=== PATIENT | male | born 1940 | race African-American/Black ===

== ENCOUNTER 2017-01-26 18:00 | Inpatient (IN) | payer MEDICARE ==
[~2017-01-26] VITALS: Ht 177.8 cm; Wt 131.5 kg
[~2017-01-26 18:00] MED LIST: DORZOL/TIMOL BOTHEYE
[2017-01-26 20:00] VITALS: BP 153/63
[2017-01-26] MEDS ORDERED: DEXTROSE 50% WATER 50ML SYRINGE IV PRN (22:15)
[2017-01-26] MEDS ORDERED: IPRATROPIUM/ALBUTEROL 0.5-3(2.5)MG/3ML NEB HHN PRN (22:15)
[2017-01-26] MEDS ORDERED: ONDANSETRON HCL 4MG/2ML VIAL IV PRN (23:45)
[2017-01-26] MEDS ORDERED: LACTULOSE 20G/30ML UDC PO PRN (23:45)
[2017-01-26] MEDS ORDERED: MAGNESIUM/ALUMINUM HYDROXIDE/SIMETHICONE 30ML UDC PO PRN ×2 (23:45)
[2017-01-26] MEDS ORDERED: ACETAMINOPHEN 650MG/20.3ML UDC PO PRN (23:45)
[2017-01-26] MEDS ORDERED: DOCUSATE SODIUM 100MG CAPSULE PO PRN (23:45)
[2017-01-26] MEDS ORDERED: GUAIFENESIN-DM 200MG-20MG/10ML UDC PO PRN (23:45)
[2017-01-27] MEDS ORDERED: HYDRALAZINE HCL 10MG TABLET PO PRN (00:30)
[2017-01-27] MEDS: BLOOD SUGAR DIAGNOSTIC STRIP TEST SCH ×4 (06:30→22:13)
[2017-01-27] MEDS: PHENYTOIN SODIUM EXTENDED 100MG CAPSULE PO SCH ×3 (07:42→22:10)
[2017-01-27 08:00] VITALS: BP 133/72
[2017-01-27 08:16] VITALS: BP 153/63
[2017-01-27] MEDS: INSULIN LISPRO 100 UNITS/ML SUBCUT SCH ×4 (09:00→22:13)
[2017-01-27] MEDS: LACTULOSE 20G/30ML UDC PO SCH ×2 (09:57→17:00)
[2017-01-27] MEDS: DOCUSATE SODIUM 100MG CAPSULE PO SCH ×2 (09:57→17:00)
[2017-01-27] MEDS: PANTOPRAZOLE SODIUM 40 MG/VIAL IV SCH (09:57)
[2017-01-27] MEDS: LEVETIRACETAM 500MG TABLET PO SCH ×2 (09:57→22:11)
[2017-01-27] MEDS: PIPERACILLIN/TAZ 2.25G PREMIX 50 ML IV SCH ×3 (09:57→17:01)
[2017-01-27] MEDS: DEXAMETHASONE 4MG/ML 1ML VIAL IV SCH (09:57)
[2017-01-27] MEDS: DORZOLAM/TIMOLOL 2.23/0.68% OPHTH DROPS 10ML BOTHEYE SCH ×2 (10:07→17:01)
[2017-01-27 20:00] VITALS: BP 136/62
[2017-01-27] MEDS: ATORVASTATIN CALCIUM 20MG TABLET PO SCH (22:11)
[2017-01-28] MEDS: PIPERACILLIN/TAZ 2.25G PREMIX 50 ML IV SCH ×3 (01:44→18:24)
[2017-01-28] MEDS: PHENYTOIN SODIUM EXTENDED 100MG CAPSULE PO SCH ×3 (06:29→21:01)
[2017-01-28] MEDS: BLOOD SUGAR DIAGNOSTIC STRIP TEST SCH ×4 (06:32→21:02)
[2017-01-28] MEDS: INSULIN LISPRO 100 UNITS/ML SUBCUT SCH ×4 (06:33→21:19)
[2017-01-28 07:17] LABS: BASOPHILS % 0.3 % (0.0-2.0); HEMATOCRIT. 35.1 % (42.0-52.0); HEMOGLOBIN. 11.4 g/dL (14.0-18.0); LYMPHOCYTES % 9.1 % (20.0-50.0); MEAN CORPUSCULAR HEMOGLOBIN 26.8 pg (28.0-32.0); MEAN CORPUSCULAR VOLUME 82.3 fL (80.0-94.0); MEAN PLATELET VOLUME 8.4 fl (7.4-10.4); MONOCYTES % 11.4 % (2.0-8.0); NEUTROPHILS % 78.2 % (40.0-76.0); PLATELET 201 x1000/uL (130-400); RED BLOOD CELL COUNT 4.26 mill/uL (4.7-6.1); RED CELL DISTRIBUTION WIDTH 15.5 % (11.6-14.6)
[2017-01-28 07:31] LABS: CARBON DIOXIDE 27 mEq/L (21-32); CHLORIDE 99 mEq/L (98-107)
[2017-01-28 08:00] VITALS: BP 141/73
[2017-01-28] MEDS: PANTOPRAZOLE SODIUM 40 MG/VIAL IV SCH (08:49)
[2017-01-28] MEDS: LACTULOSE 20G/30ML UDC PO SCH ×2 (08:50→17:00)
[2017-01-28] MEDS: DOCUSATE SODIUM 100MG CAPSULE PO SCH ×2 (08:50→17:00)
[2017-01-28] MEDS: DEXAMETHASONE 4MG/ML 1ML VIAL IV SCH (08:50)
[2017-01-28] MEDS: DORZOLAM/TIMOLOL 2.23/0.68% OPHTH DROPS 10ML BOTHEYE SCH ×2 (08:50→17:57)
[2017-01-28] MEDS: LEVETIRACETAM 500MG TABLET PO SCH ×2 (08:51→21:02)
[2017-01-28 20:27] VITALS: BP 166/79
[2017-01-28] MEDS: ATORVASTATIN CALCIUM 20MG TABLET PO SCH (21:02)
[2017-01-29] MEDS: PIPERACILLIN/TAZ 2.25G PREMIX 50 ML IV SCH ×3 (01:06→17:19)
[2017-01-29] MEDS: PANTOPRAZOLE 40MG DR TABLET PO SCH (06:17)
[2017-01-29] MEDS: PHENYTOIN SODIUM EXTENDED 100MG CAPSULE PO SCH ×3 (06:17→21:42)
[2017-01-29] MEDS: BLOOD SUGAR DIAGNOSTIC STRIP TEST SCH ×4 (06:17→21:43)
[2017-01-29] MEDS: INSULIN LISPRO 100 UNITS/ML SUBCUT SCH ×4 (06:56→21:00)
[2017-01-29 07:56] VITALS: BP 117/54
[2017-01-29] MEDS: DORZOLAM/TIMOLOL 2.23/0.68% OPHTH DROPS 10ML BOTHEYE SCH ×2 (08:39→17:30)
[2017-01-29] MEDS: DEXAMETHASONE 4MG/ML 1ML VIAL IV SCH (08:40)
[2017-01-29] MEDS: DOCUSATE SODIUM 100MG CAPSULE PO SCH ×2 (08:40→17:19)
[2017-01-29] MEDS: LEVETIRACETAM 500MG TABLET PO SCH ×2 (08:40→21:42)
[2017-01-29] MEDS: LACTULOSE 20G/30ML UDC PO SCH ×2 (08:41→17:00)
[2017-01-29 20:00] VITALS: BP 123/60
[2017-01-29] MEDS: ATORVASTATIN CALCIUM 20MG TABLET PO SCH (21:42)
[2017-01-30] MEDS: PIPERACILLIN/TAZ 2.25G PREMIX 50 ML IV SCH ×2 (02:03→09:07)
[2017-01-30] MEDS: BLOOD SUGAR DIAGNOSTIC STRIP TEST SCH ×4 (06:13→21:00)
[2017-01-30] MEDS: PHENYTOIN SODIUM EXTENDED 100MG CAPSULE PO SCH ×3 (06:15→22:24)
[2017-01-30] MEDS: PANTOPRAZOLE 40MG DR TABLET PO SCH (06:15)
[2017-01-30 08:00] VITALS: BP 121/59
[2017-01-30] MEDS: INSULIN LISPRO 100 UNITS/ML SUBCUT SCH ×4 (08:52→21:00)
[2017-01-30] MEDS: LACTULOSE 20G/30ML UDC PO SCH ×3 (09:00→16:25)
[2017-01-30] MEDS: DEXAMETHASONE 4MG/ML 1ML VIAL IV SCH (09:07)
[2017-01-30] MEDS: DOCUSATE SODIUM 100MG CAPSULE PO SCH ×2 (09:07→17:05)
[2017-01-30] MEDS: LEVETIRACETAM 500MG TABLET PO SCH ×2 (09:07→22:24)
[2017-01-30] MEDS: DORZOLAM/TIMOLOL 2.23/0.68% OPHTH DROPS 10ML BOTHEYE SCH ×2 (09:10→17:05)
[2017-01-30 20:00] VITALS: BP 116/54
[2017-01-30] MEDS: ATORVASTATIN CALCIUM 20MG TABLET PO SCH (22:24)
[2017-01-31] MEDS: PANTOPRAZOLE 40MG DR TABLET PO SCH (06:10)
[2017-01-31] MEDS: PHENYTOIN SODIUM EXTENDED 100MG CAPSULE PO SCH ×3 (06:10→21:52)
[2017-01-31] MEDS: BLOOD SUGAR DIAGNOSTIC STRIP TEST SCH ×4 (06:44→21:51)
[2017-01-31] MEDS: INSULIN LISPRO 100 UNITS/ML SUBCUT SCH ×4 (06:45→21:00)
[2017-01-31] MEDS: LACTULOSE 20G/30ML UDC PO SCH ×2 (08:07→16:21)
[2017-01-31 08:27] VITALS: BP 127/66
[2017-01-31] MEDS: LEVETIRACETAM 500MG TABLET PO SCH ×2 (08:50→21:52)
[2017-01-31] MEDS: DEXAMETHASONE 4MG/ML 1ML VIAL IV SCH (08:50)
[2017-01-31] MEDS: DOCUSATE SODIUM 100MG CAPSULE PO SCH ×2 (08:50→16:21)
[2017-01-31] MEDS: DORZOLAM/TIMOLOL 2.23/0.68% OPHTH DROPS 10ML BOTHEYE SCH ×2 (08:50→16:21)
[2017-01-31 20:00] VITALS: BP 148/69
[2017-01-31] MEDS: ATORVASTATIN CALCIUM 20MG TABLET PO SCH (21:52)
[2017-02-01] MEDS: PHENYTOIN SODIUM EXTENDED 100MG CAPSULE PO SCH ×3 (06:14→21:51)
[2017-02-01] MEDS: BLOOD SUGAR DIAGNOSTIC STRIP TEST SCH ×4 (06:14→21:53)
[2017-02-01] MEDS: LACTULOSE 20G/30ML UDC PO SCH ×2 (07:33→16:06)
[2017-02-01] MEDS: INSULIN LISPRO 100 UNITS/ML SUBCUT SCH ×4 (07:34→21:00)
[2017-02-01 08:00] VITALS: BP 135/76
[2017-02-01] MEDS: DOCUSATE SODIUM 100MG CAPSULE PO SCH ×2 (09:04→16:36)
[2017-02-01] MEDS: DORZOLAM/TIMOLOL 2.23/0.68% OPHTH DROPS 10ML BOTHEYE SCH ×2 (09:04→16:35)
[2017-02-01] MEDS: DEXAMETHASONE 4MG/ML 1ML VIAL IV SCH (09:04)
[2017-02-01] MEDS: FAMOTIDINE 20MG TABLET PO SCH (09:05)
[2017-02-01] MEDS: LEVETIRACETAM 500MG TABLET PO SCH ×2 (09:05→21:51)
[2017-02-01 20:00] VITALS: BP 136/60
[2017-02-01] MEDS: ATORVASTATIN CALCIUM 20MG TABLET PO SCH (21:51)
[2017-02-02] MEDS: BLOOD SUGAR DIAGNOSTIC STRIP TEST SCH ×4 (06:08→21:00)
[2017-02-02] MEDS: PHENYTOIN SODIUM EXTENDED 100MG CAPSULE PO SCH ×3 (06:09→21:03)
[2017-02-02 07:09] LABS: BASOPHILS % 0.6 % (0.0-2.0); EOSINOPHILS % 2.3 % (0.0-5.0); HEMATOCRIT. 30.3 % (42.0-52.0); HEMOGLOBIN. 9.8 g/dL (14.0-18.0); LYMPHOCYTES % 16.9 % (20.0-50.0); MEAN CORPUSCULAR HEMOGLOBIN 26.8 pg (28.0-32.0); MEAN CORPUSCULAR VOLUME 82.8 fL (80.0-94.0); MEAN PLATELET VOLUME 7.9 fl (7.4-10.4); MONOCYTES % 8.5 % (2.0-8.0); NEUTROPHILS % 71.7 % (40.0-76.0); PLATELET 233 x1000/uL (130-400); RED BLOOD CELL COUNT 3.66 mill/uL (4.7-6.1); RED CELL DISTRIBUTION WIDTH 15.5 % (11.6-14.6)
[2017-02-02] MEDS: INSULIN LISPRO 100 UNITS/ML SUBCUT SCH ×4 (07:43→21:00)
[2017-02-02 08:00] VITALS: BP 133/67
[2017-02-02] MEDS: LEVETIRACETAM 500MG TABLET PO SCH ×2 (08:17→21:03)
[2017-02-02] MEDS: DEXAMETHASONE 4MG/ML 1ML VIAL IV SCH (08:17)
[2017-02-02] MEDS: DOCUSATE SODIUM 100MG CAPSULE PO SCH ×2 (08:17→16:53)
[2017-02-02] MEDS: FAMOTIDINE 20MG TABLET PO SCH (08:17)
[2017-02-02] MEDS: DORZOLAM/TIMOLOL 2.23/0.68% OPHTH DROPS 10ML BOTHEYE SCH ×2 (08:17→16:53)
[2017-02-02] MEDS: LACTULOSE 20G/30ML UDC PO SCH ×2 (08:18→16:50)
[2017-02-02 08:51] LABS: CARBON DIOXIDE 26 mEq/L (21-32); CHLORIDE 102 mEq/L (98-107)
[2017-02-02 20:00] VITALS: BP 132/62
[2017-02-02] MEDS: ATORVASTATIN CALCIUM 20MG TABLET PO SCH (21:03)
[2017-02-03] MEDS: BLOOD SUGAR DIAGNOSTIC STRIP TEST SCH ×4 (06:30→20:48)
[2017-02-03] MEDS: PHENYTOIN SODIUM EXTENDED 100MG CAPSULE PO SCH (06:32)
[2017-02-03] MEDS: INSULIN LISPRO 100 UNITS/ML SUBCUT SCH ×4 (06:34→20:48)
[2017-02-03 08:00] VITALS: BP 126/67
[2017-02-03] MEDS: DOCUSATE SODIUM 100MG CAPSULE PO SCH ×2 (09:00→16:19)
[2017-02-03] MEDS: LACTULOSE 20G/30ML UDC PO SCH ×2 (09:00→16:19)
[2017-02-03] MEDS: DORZOLAM/TIMOLOL 2.23/0.68% OPHTH DROPS 10ML BOTHEYE SCH ×2 (09:27→16:18)
[2017-02-03] MEDS: LEVETIRACETAM 500MG TABLET PO SCH ×2 (09:28→20:48)
[2017-02-03] MEDS: DEXAMETHASONE 4MG/ML 1ML VIAL IV SCH (09:28)
[2017-02-03] MEDS: FAMOTIDINE 20MG TABLET PO SCH (09:28)
[2017-02-03 20:16] VITALS: BP 121/48
[2017-02-03] MEDS: ATORVASTATIN CALCIUM 20MG TABLET PO SCH (20:48)
[2017-02-04] MEDS: BLOOD SUGAR DIAGNOSTIC STRIP TEST SCH ×2 (06:39→12:05)
[2017-02-04] MEDS: INSULIN LISPRO 100 UNITS/ML SUBCUT SCH ×2 (06:40→12:05)
[2017-02-04 07:53] VITALS: BP 138/63
[2017-02-04] MEDS ORDERED: DEXAMETHASONE 2MG TABLET PO SCH (08:00)
[2017-02-04] MEDS: DORZOLAM/TIMOLOL 2.23/0.68% OPHTH DROPS 10ML BOTHEYE SCH (08:23)
[2017-02-04] MEDS: LACTULOSE 20G/30ML UDC PO SCH (08:23)
[2017-02-04] MEDS: LEVETIRACETAM 500MG TABLET PO SCH (08:23)
[2017-02-04] MEDS: DOCUSATE SODIUM 100MG CAPSULE PO SCH (08:23)
[2017-02-04] MEDS: FAMOTIDINE 20MG TABLET PO SCH (08:23)
[2017-02-04 12:26] VITALS: BP 138/63
== END 2017-02-04 15:25 | disposition home health service (06) | DRG 54 ==
PROVIDERS: ADMIT Psychiatry & Neurology Neurology; ATTEND Internal Medicine
DX: C79.31 Secondary malignant neoplasm of brain (principal); G93.40 Encephalopathy, unspecified; N17.9 Acute kidney failure, unspecified; E11.22 Type 2 diabetes mellitus with diabetic chronic kidney disease; E66.01 Morbid (severe) obesity due to excess calories; C61 Malignant neoplasm of prostate; D63.1 Anemia in chronic kidney disease; Z68.41 Body mass index [BMI] 40.0-44.9, adult; F06.31 Mood disorder due to known physiological condition with depressive features; F06.8 Other specified mental disorders due to known physiological condition; I10 Essential (primary) hypertension; J34.89 Other specified disorders of nose and nasal sinuses; K21.9 Gastro-esophageal reflux disease without esophagitis; N18.9 Chronic kidney disease, unspecified; I12.9 Hypertensive chronic kidney disease with stage 1 through stage 4 chronic kidney disease, or unspecified chronic kidney disease; Z90.5 Acquired absence of kidney; Z85.46 Personal history of malignant neoplasm of prostate; Z98.41 Cataract extraction status, right eye
CPT/HCPCS: 36415; 80048; 82962; 85025; 92523; 97110; 97116; 97163; 97166; 97530; 97532; 97535; C9113; J1100; J1815; J2543; J7040; J8540

== ENCOUNTER 2018-08-29 00:27 | Inpatient (IN) | payer MEDICARE ==
[~2018-08-29] VITALS: Ht 188 cm; Wt 123.8 kg
[2018-08-29 01:35] LABS: BASOPHILS % 0.5 % (0.0-2.0); EOSINOPHILS % 5.3 % (0.0-5.0); HEMATOCRIT. 35.7 % (42.0-52.0); HEMOGLOBIN. 11.6 g/dL (14.0-18.0); LYMPHOCYTES % 17.6 % (20.0-50.0); MEAN CORPUSCULAR HEMOGLOBIN 27.3 pg (28.0-32.0); MEAN PLATELET VOLUME 7.9 fl (7.4-10.4); MONOCYTES % 10.7 % (2.0-8.0); NEUTROPHILS % 65.9 % (40.0-76.0); PLATELET 199 x1000/uL (130-400); RED BLOOD CELL COUNT 4.25 mill/uL (4.7-6.1); RED CELL DISTRIBUTION WIDTH 15.5 % (11.6-14.6)
[2018-08-29 01:42] LABS: CHLORIDE 108 mEq/L (98-107)
[2018-08-29 01:46] LABS: ETHANOL BLOOD < 10 mg/dL
[2018-08-29 01:50] LABS: CREATINE KINASE 168 IU/L (39-308)
[2018-08-29 02:23] LABS: CLARITY URINE CLEAR (CLEAR); COLOR URINE YELLOW (YELLOW); KETONES URINE NEGATIVE (NEGATIVE); LEUKOCYTE ESTERASE URINE NEGATIVE (NEGATIVE); NITRITE URINE NEGATIVE (NEGATIVE); OCCULT BLOOD URINE NEGATIVE (NEGATIVE); PH URINE 5.5 (4.5-8.0); PROTEIN URINE 1+ (NEGATIVE); SPECIFIC GRAVITY URINE 1.022 (1.005-1.030)
[2018-08-29 02:32] LABS: *AMPHETAMINES SCREEN URINE NEGATIVE (NEGATIVE); *BARBITURATES SCREEN URINE NEGATIVE (NEGATIVE)
[2018-08-29 02:33] LABS: *BENZODIAZEPINES SCREEN URINE NEGATIVE (NEGATIVE); *COCAINE SCREEN URINE NEGATIVE (NEGATIVE); METHADONE URINE SCREEN NEGATIVE (NEGATIVE); OPIATES URINE SCREEN NEGATIVE (NEGATIVE); PHENCYCLIDINE URINE SCREEN NEGATIVE (NEGATIVE)
[2018-08-29 02:34] LABS: CANNABINOID URINE SCREEN NEGATIVE (NEGATIVE)
[2018-08-29] MEDS ORDERED: DILTIAZEM HCL 90MG TABLET PO ONE (04:30)
[2018-08-29] MEDS ORDERED: HYDRALAZINE 20MG/ML VIAL IV ONE (08:15)
[2018-08-29 09:30] VITALS: BP 197/100
[2018-08-29] MEDS ORDERED: DOCUSATE SODIUM 100MG CAPSULE PO PRN (09:30)
[2018-08-29] MEDS ORDERED: GUAIFENESIN 200MG/10ML SUGAR FREE UDC PO PRN (09:30)
[2018-08-29] MEDS ORDERED: CLONIDINE 0.1MG TABLET PO PRN (09:30)
[2018-08-29] MEDS ORDERED: DIPHENHYDRAMINE 50MG/ML VIAL IV PRN (09:30)
[2018-08-29] MEDS ORDERED: IPRATROPIUM/ALBUTEROL 0.5-3(2.5)MG/3ML NEB INH PRN (09:30)
[2018-08-29] MEDS ORDERED: HYDROCODONE/ACETAMINOPHEN 5/325MG TABLET PO PRN (09:30)
[2018-08-29] MEDS ORDERED: MAGNESIUM/ALUMINUM HYDROXIDE/SIMETHICONE 30ML UDC PO PRN (09:30)
[2018-08-29] MEDS ORDERED: ONDANSETRON HCL 4MG/2ML INJ IV PRN (09:30)
[2018-08-29] MEDS ORDERED: HYDRALAZINE 20MG/ML VIAL IV PRN (09:30)
[2018-08-29] MEDS ORDERED: ACETAMINOPHEN 325MG TABLET PO PRN (09:30)
[2018-08-29 09:51] LABS: PHOSPHORUS 3.7 mg/dL (2.5-4.9)
[2018-08-29 09:52] VITALS: BP 178/85
[2018-08-29] MEDS ORDERED: DILT120C11 PO (10:12)
[2018-08-29 12:00] VITALS: BP 164/79
[2018-08-29] MEDS ORDERED: CLONIDINE 0.2MG TABLET PO NR (12:00)
[2018-08-29] MEDS: ENOXAPARIN 30MG/0.3ML SYR SUBCUT SCH ×2 (12:20→21:07)
[2018-08-29 15:17] LABS: CREATINE KINASE MB FRACTION 3.3 ng/mL (0.5-3.6)
[2018-08-29 16:00] VITALS: BP 132/62
[2018-08-29] MEDS ORDERED: DILTIAZEM HCL 120MG CAPSULE CD 24HR PO SCH (17:00)
[2018-08-29 20:00] VITALS: BP_SYST 150; BP_SYST 179; BP_DIAS 83; BP_DIAS 95
[2018-08-29] MEDS: METOPROLOL TARTRATE 25MG TABLET PO SCH (21:06)
[2018-08-29] MEDS: DORZOLAM/TIMOLOL 2.23/0.68% OPHTH DROPS 10ML BOTHEYE SCH (21:06)
[2018-08-29] MEDS: NIFEDIPINE XL 30MG TAB PO SCH (21:07)
[2018-08-30] VITALS: BP 111/66
[2018-08-30 04:00] VITALS: BP 154/69
[2018-08-30 06:24] LABS: BASOPHILS % 0.4 % (0.0-2.0); EOSINOPHILS % 6.1 % (0.0-5.0); HEMATOCRIT. 36.3 % (42.0-52.0); MEAN CORPUSCULAR HEMOGLOBIN 27.8 pg (28.0-32.0); MEAN CORPUSCULAR VOLUME 83.8 fL (80.0-94.0); MEAN PLATELET VOLUME 8.3 fl (7.4-10.4); MONOCYTES % 11.6 % (2.0-8.0); NEUTROPHILS % 59.9 % (40.0-76.0); PLATELET 199 x1000/uL (130-400); RED BLOOD CELL COUNT 4.34 mill/uL (4.7-6.1); RED CELL DISTRIBUTION WIDTH 15.3 % (11.6-14.6)
[2018-08-30 06:56] LABS: CHLORIDE 108 mEq/L (98-107)
[2018-08-30 07:07] LABS: PHOSPHORUS 3.8 mg/dL (2.5-4.9)
[2018-08-30 07:08] LABS: HDL CHOLESTEROL 45 mg/dL (40-59); LDL CHOLESTEROL 148 mg/dL (5-100)
[2018-08-30 08:00] VITALS: BP 135/50
[2018-08-30] MEDS: NIFEDIPINE XL 30MG TAB PO SCH ×2 (09:00→21:21)
[2018-08-30] MEDS: METOPROLOL TARTRATE 25MG TABLET PO SCH ×2 (09:00→21:22)
[2018-08-30] MEDS: ENOXAPARIN 30MG/0.3ML SYR SUBCUT SCH ×2 (09:21→21:22)
[2018-08-30] MEDS: DORZOLAM/TIMOLOL 2.23/0.68% OPHTH DROPS 10ML BOTHEYE SCH ×2 (09:23→21:22)
[2018-08-30 12:00] VITALS: BP_SYST 131; BP_SYST 140; BP_SYST 152; BP_DIAS 62; BP_DIAS 69; BP_DIAS 81
[2018-08-30 16:00] VITALS: BP 121/61
[2018-08-30 20:00] VITALS: BP 162/88
[2018-08-31] VITALS: BP 149/73
[2018-08-31 04:00] VITALS: BP 154/69
[2018-08-31 07:56] LABS: CHLORIDE 108 mEq/L (98-107)
[2018-08-31 08:00] VITALS: BP 125/77
[2018-08-31 08:04] LABS: PHOSPHORUS 3.8 mg/dL (2.5-4.9)
[2018-08-31 08:10] LABS: BASOPHILS % 0.6 % (0.0-2.0); EOSINOPHILS % 7.7 % (0.0-5.0); HEMATOCRIT. 38.2 % (42.0-52.0); HEMOGLOBIN. 12.3 g/dL (14.0-18.0); LYMPHOCYTES % 22.7 % (20.0-50.0); MEAN CORPUSCULAR HEMOGLOBIN 27.2 pg (28.0-32.0); MEAN CORPUSCULAR VOLUME 84.2 fL (80.0-94.0); MEAN PLATELET VOLUME 8.6 fl (7.4-10.4); MONOCYTES % 10.1 % (2.0-8.0); NEUTROPHILS % 58.9 % (40.0-76.0); PLATELET 206 x1000/uL (130-400); RED BLOOD CELL COUNT 4.53 mill/uL (4.7-6.1); RED CELL DISTRIBUTION WIDTH 15.5 % (11.6-14.6)
[2018-08-31] MEDS: NIFEDIPINE XL 30MG TAB PO SCH (08:29)
[2018-08-31] MEDS: ENOXAPARIN 30MG/0.3ML SYR SUBCUT SCH (08:30)
[2018-08-31] MEDS: METOPROLOL TARTRATE 25MG TABLET PO SCH (08:30)
[2018-08-31] MEDS: DORZOLAM/TIMOLOL 2.23/0.68% OPHTH DROPS 10ML BOTHEYE SCH (08:31)
[2018-08-31 12:00] VITALS: BP_SYST 134; BP_SYST 139; BP_SYST 196; BP_DIAS 62; BP_DIAS 90
[2018-08-31 13:45] VITALS: BP 134/62
== END 2018-08-31 14:55 | disposition home or self-care (01) | DRG 74 ==
LOC: ER 00:27 → 5WST 08:23 → ENRESERV 08:32
PROVIDERS: ADMIT Internal Medicine; ATTEND Internal Medicine
DX: G90.8 Other disorders of autonomic nervous system (principal); N17.9 Acute kidney failure, unspecified; C79.31 Secondary malignant neoplasm of brain; I12.9 Hypertensive chronic kidney disease with stage 1 through stage 4 chronic kidney disease, or unspecified chronic kidney disease; I16.0 Hypertensive urgency; D64.9 Anemia, unspecified; E11.22 Type 2 diabetes mellitus with diabetic chronic kidney disease; E78.5 Hyperlipidemia, unspecified; F03.90 Unspecified dementia, unspecified severity, without behavioral disturbance, psychotic disturbance, mood disturbance, and anxiety; N18.2 Chronic kidney disease, stage 2 (mild); I95.1 Orthostatic hypotension; E78.00 Pure hypercholesterolemia, unspecified; K21.9 Gastro-esophageal reflux disease without esophagitis; D72.1 Eosinophilia; R00.1 Bradycardia, unspecified; Z85.46 Personal history of malignant neoplasm of prostate; Z82.49 Family history of ischemic heart disease and other diseases of the circulatory system; Z83.3 Family history of diabetes mellitus; Z79.899 Other long term (current) drug therapy; Z92.21 Personal history of antineoplastic chemotherapy
CPT/HCPCS: 36415; 71045; 76770; 80048; 80061; 80305; 80320; 82550; 82553; 83036; 83735; 84100; 84153; 84443; 84484; 85379; 93005; 93306; 93880; 93970; 96374; 97116; 97162; 97166; 97530; 99291; J0360; J1650; G0103; G0480

== ENCOUNTER 2019-04-02 21:22 | Emergency (ER) | payer MEDICARE ==
[~2019-04-02] VITALS: Ht 182.9 cm; Wt 86.0 kg
[~2019-04-02 21:22] MED LIST changes: +DILT120C11 PO
[2019-04-02] MEDS ORDERED: SODIUM CHLORIDE 0.9% 1,000 ML IV ONE (21:39)
[2019-04-02 22:41] LABS: BASOPHILS % 0.5 % (0.0-2.0); EOSINOPHILS % 2.6 % (0.0-5.0); HEMOGLOBIN. 12.2 g/dL (14.0-18.0); LYMPHOCYTES % 12.4 % (20.0-50.0); MEAN CORPUSCULAR HEMOGLOBIN 26.7 pg (28.0-32.0); MEAN CORPUSCULAR VOLUME 82.9 fL (80.0-94.0); MEAN PLATELET VOLUME 7.4 fl (7.4-10.4); MONOCYTES % 8.4 % (2.0-8.0); NEUTROPHILS % 76.1 % (40.0-76.0); PLATELET 297 x1000/uL (130-400); RED BLOOD CELL COUNT 4.59 mill/uL (4.7-6.1); RED CELL DISTRIBUTION WIDTH 18.4 % (11.6-14.6)
[2019-04-02 22:44] LABS: CHLORIDE 107 mEq/L (98-107)
[2019-04-02 22:46] LABS: PROTHROMBIN TIME 10.7 sec (9.6-11.0)
[2019-04-02 23:30] LABS: CLARITY URINE CLOUDY (CLEAR); COLOR URINE YELLOW (YELLOW); KETONES URINE NEGATIVE (NEGATIVE); LEUKOCYTE ESTERASE URINE 1+ (NEGATIVE); NITRITE URINE POSITIVE (NEGATIVE); OCCULT BLOOD URINE NEGATIVE (NEGATIVE); PH URINE 5.5 (4.5-8.0); PROTEIN URINE TRACE (NEGATIVE); SPECIFIC GRAVITY URINE 1.013 (1.005-1.030)
[2019-04-02] MEDS ORDERED: CLONIDINE 0.2MG TABLET PO ONE (23:45)
[2019-04-03] MEDS ORDERED: CEFTRIAXONE 1 G PREMIX 50 ML IV ONE
[2019-04-03 03:27] VITALS: BP 169/87
== END 2019-04-03 03:28 | disposition home or self-care (01) ==
LOC: ER 21:22
DX: S09.8XXA Other specified injuries of head, initial encounter (principal); S80.01XA Contusion of right knee, initial encounter; N39.0 Urinary tract infection, site not specified; I10 Essential (primary) hypertension; Z85.46 Personal history of malignant neoplasm of prostate; Z91.81 History of falling; Z96.649 Presence of unspecified artificial hip joint; Z86.011 Personal history of benign neoplasm of the brain; W18.30XA Fall on same level, unspecified, initial encounter; Y93.89 Activity, other specified; Y92.018 Other place in single-family (private) house as the place of occurrence of the external cause
CPT/HCPCS: 36415; 70450; 71045; 73560; 80053; 81003; 83605; 83690; 83880; 84484; 85025; 85610; 85730; 93005; 96365; 99284; J0696; J7030